=== PATIENT | male | born 1970 | race Caucasian/White ===

== ENCOUNTER 2017-06-17 12:38 | Inpatient (IN) | payer MEDICARE, SELFPAY ==
[~2017-06-17] VITALS: Ht 175.3 cm; Wt 110.7 kg
[~2017-06-17 12:38] MED LIST: PARO10TA89 PO; QUET200T PO
[2017-06-17] MEDS ORDERED: HydrOXYzine PAMOATE 50 MG CAPSULE PO PRN (13:15)
[2017-06-17] MEDS ORDERED: ACETAMINOPHEN 325 MG TABLET PO PRN (13:15)
[2017-06-17] MEDS ORDERED: LOPERAMIDE HCL 2 MG CAPSULE PO PRN (13:15)
[2017-06-17] MEDS ORDERED: TUBERCULIN, PURIFIED PROTEIN DERIVATIVE 5 TU/0.1 ML SYG ID ONE (13:15)
[2017-06-17] MEDS ORDERED: GuaiFENesin/D-METHORPHAN [SUGAR-FREE] 200-20MG/10 ML SYRUP UDCUP PO PRN (13:15)
[2017-06-17] MEDS ORDERED: MAGNESIUM HYDROXIDE SUSPENSION 30 ML UDCUP PO PRN (13:15)
[2017-06-17] MEDS ORDERED: ZOLPIDEM TARTRATE 10 MG TABLET PO PRN (13:15)
[2017-06-17] MEDS ORDERED: MAG HYDROX/AL HYDROX/SIMETH ES 30 ML SUSPENSION UDCUP PO PRN (13:15)
[2017-06-17] MEDS ORDERED: PROMETHAZINE HCL 25 MG TABLET PO PRN (13:15)
[2017-06-17] MEDS ORDERED: QUEtiapine FUMARATE 100 MG TABLET PO PRN (13:15)
[2017-06-17 14:16] VITALS: BP 142/95
[2017-06-17] MEDS ORDERED: LITH300CRT PO (14:30)
[2017-06-17] MEDS ORDERED: LITH300C3 PO (15:45)
[2017-06-17] MEDS ORDERED: QUET300T2 PO (15:46)
[2017-06-17] MEDS ORDERED: INFLUENZA VIRUS VACCINE QVS 2017-18 (3YR+)/PF 60 MCG/0.5 ML SYRINGE IM ONE (16:00)
[2017-06-17 16:06] VITALS: BP 105/70
[2017-06-17] MEDS: THIAMINE HCL 100 MG TABLET PO SCH (16:18)
[2017-06-17] MEDS: LITHIUM CARBONATE 300 MG CAPSULE PO SCH (16:18)
[2017-06-17] MEDS: LORazepam 2 MG TABLET PO PRN (17:51)
[2017-06-17] MEDS: QUEtiapine FUMARATE 200 MG TABLET PO SCH (20:06)
[2017-06-18 06:01] VITALS: BP 116/60
[2017-06-18] MEDS: FOLIC ACID 1 MG TABLET PO SCH (08:06)
[2017-06-18] MEDS: MULTIVITAMINS WITH MINERALS, THERAPEUTIC TABLET PO SCH (08:06)
[2017-06-18] MEDS: THIAMINE HCL 100 MG TABLET PO SCH ×2 (08:06→16:33)
[2017-06-18] MEDS: LITHIUM CARBONATE 300 MG CAPSULE PO SCH ×3 (08:06→16:33)
[2017-06-18 08:21] LABS: BASOPHILS % (AUTO) 0.3 % (0.0-2.0); EOSINOPHILS % (AUTO) 3.5 % (1.0-6.0); HEMATOCRIT 39.2 % (41-53); HEMOGLOBIN 13.7 g/dL (13.5-17.5); LYMPHOCYTES # (AUTO) 0.9 K/uL (1.0-4.8); LYMPHOCYTES % (AUTO) 16.1 % (22.0-44.0); MEAN CORPUSCULAR HEMOGLOBIN 32.3 pg (26.0-34.0); MEAN CORPUSCULAR HGB CONC 34.9 G/dL (31.0-37.0); MEAN CORPUSCULAR VOLUME 93 fL (80-100); MONOCYTES # (AUTO) 0.5 K/uL (0.1-1.0); NEUTROPHILS % (AUTO) 71.1 % (40.0-70.0); PLATELET COUNT (AUTO) 243 K/uL (150-450); RED BLOOD CELL COUNT(AUTO) 4.24 MIL/uL (4.50-5.90); RED CELL DISTRIBUTION WIDTH 13.7 % (11.5-14.5); WHITE BLOOD COUNT (AUTO) 5.7 K/uL (4.5-11.0)
[2017-06-18 08:26] VITALS: BP 124/83
[2017-06-18 08:44] LABS: HEMOGLOBIN A1C 6.2 % (4.5-6.2)
[2017-06-18 08:59] LABS: LITHIUM 0.41 mmol/L (0.60-1.20)
[2017-06-18 09:21] LABS: ALANINE AMINOTRANSFERASE 39 U/L (12-78); ALBUMIN 3.6 g/dL (3.4-5.0); ANION GAP 9 mmol/L (8-16); ASPARTATE AMINOTRANSFERASE 26 U/L (15-37); BILIRUBIN,TOTAL 0.5 mg/dL (0.1-1.0); CALCIUM, TOTAL 9.1 mg/dL (8.8-10.5); CARBON DIOXIDE 26 mmol/L (22-29); CHLORIDE 102 mmol/L (98-107); CHOL/HDL RATIO 6.3 (4.2-7.3); CREATININE 0.97 mg/dL (0.60-1.30); GLOMERULAR FILTR. RATE CALC > 60 mL/min (>60); POTASSIUM 3.7 mmol/L (3.5-5.1); SODIUM SERUM 137 mmol/L (136-145); TOTAL PROTEIN, SERUM 7.2 g/dL (6.4-8.2); UREA NITROGEN, BLOOD 13 mg/dL (7-18)
[2017-06-18] MEDS: LORazepam 2 MG TABLET PO PRN ×2 (11:32→15:58)
[2017-06-18 16:07] VITALS: BP 140/85
[2017-06-18] MEDS: QUEtiapine FUMARATE 200 MG TABLET PO SCH (20:36)
[2017-06-19 04:18] VITALS: BP 117/82
[2017-06-19] MEDS: MULTIVITAMINS WITH MINERALS, THERAPEUTIC TABLET PO SCH (08:39)
[2017-06-19] MEDS: THIAMINE HCL 100 MG TABLET PO SCH ×2 (08:39→16:17)
[2017-06-19] MEDS: LITHIUM CARBONATE 300 MG CAPSULE PO SCH ×3 (08:39→16:12)
[2017-06-19] MEDS: FOLIC ACID 1 MG TABLET PO SCH (08:39)
[2017-06-19 12:00] VITALS: BP 126/85
[2017-06-19 16:04] VITALS: BP 142/87
[2017-06-19] MEDS: NICOTINE 21 MG/24 HOUR PATCH TD SCH (16:12)
[2017-06-19] MEDS: LORazepam 2 MG TABLET PO PRN (16:12)
[2017-06-19] MEDS: QUEtiapine FUMARATE 200 MG TABLET PO SCH (20:11)
[2017-06-19] MEDS ORDERED: IBUPROFEN 600 MG TABLET PO PRN (21:45)
[2017-06-20 05:27] VITALS: BP 119/76
[2017-06-20 08:34] VITALS: BP 126/74
[2017-06-20] MEDS: THIAMINE HCL 100 MG TABLET PO SCH ×2 (08:38→16:34)
[2017-06-20] MEDS: LITHIUM CARBONATE 300 MG CAPSULE PO SCH ×3 (08:38→16:34)
[2017-06-20] MEDS: NICOTINE 21 MG/24 HOUR PATCH TD SCH (08:40)
[2017-06-20] MEDS: FOLIC ACID 1 MG TABLET PO SCH (08:40)
[2017-06-20] MEDS: MULTIVITAMINS WITH MINERALS, THERAPEUTIC TABLET PO SCH (08:40)
[2017-06-20] MEDS ORDERED: ATORVASTATIN CALCIUM 40 MG TABLET PO SCH (09:00)
[2017-06-20] MEDS: LORazepam 2 MG TABLET PO PRN (14:26)
[2017-06-20 16:02] VITALS: BP 134/83
[2017-06-20] MEDS ORDERED: ATOR40TA28 PO (20:22)
== END 2017-06-20 20:55 | disposition home or self-care (01) | DRG 885 ==
LOC: B2X 14:05
PROVIDERS: ADMIT Psychiatry & Neurology Psychiatry; ATTEND Psychiatry & Neurology Psychiatry
PROC: 3E0234Z Introduction of Serum, Toxoid and Vaccine into Muscle, Percutaneous Approach (ICD-10-PCS; principal; 2017-06-17)
DX: F25.9 Schizoaffective disorder, unspecified (principal); Z91.19 Patient's noncompliance with other medical treatment and regimen; E78.5 Hyperlipidemia, unspecified; F12.90 Cannabis use, unspecified, uncomplicated; F15.90 Other stimulant use, unspecified, uncomplicated; I83.90 Asymptomatic varicose veins of unspecified lower extremity; Z91.5 Personal history of self-harm; Z23 Encounter for immunization
CPT/HCPCS: 83036; 84439; 84443; 86592; 90471